=== PATIENT | male | born 1990 | race Hispanic/Latino ===

== ENCOUNTER → 2017-08-29 | Day surgery (SDC) | payer BC ==
[~2017-08-29] MED LIST: Lactated Ringer's 1,000 ML IV SCH; Morphine 4 mg/ml ISec IVP PRN; cefTRIAXone 1 gm 1 GM/100 ML BAG IVPB SCH; metroNIDAZOLE IV 500 mg/100 ml 500 MG/100 ML BAG IVPB SCH
[2017-08-29 17:07] VITALS: BMI 28.0
[2017-08-29 17:08] VITALS: BP 152/90; PULSE 68; RESP 16; TEMP 98.6; O2SAT 99
--- NOTE | 2017-08-29 17:10 | ED PDOC ---
Arrival/HPI - General Chief Complaint: Abdominal Pain Time Seen by Provider: 08/29/17 16:56 Historian: Patient - History of Present Illness Time/Duration: Other (This morning) Symptom Course: Unchanged Quality: Aching Severity Level: Mild Associated Symptoms (Text): 08/29/17 17:07 Patient woke up this morning at approximately 11 AM with right lower quadrant abdominal pain. No nausea vomiting or diarrhea. No genitourinary symptoms. No back pain. No radiation of pain. No fever or chills. He does not appear ill. He was seen at an urgent care clinic and directed to the emergency department to rule out appendicitis. Family/Social History - Physician Review Nursing Documentation Reviewed: Yes Family/Social History: Unknown Family HX Smoking Status: Never Smoked Hx Alcohol Use: Yes Frequency of alcohol use: Socially Hx Substance Use: No Allergies/Home Meds Allergies/Adverse Reactions: Allergies No Known Allergies Allergy (Unverified 08/29/17 17:06) Home Medications: Home Meds Medication Instructions Recorded Confirmed No Known Home Med 08/29/17 08/29/17 Review of Systems - Physician Review All systems were reviewed & negative as marked: Yes - Review of Systems Constitutional: Normal Respiratory: Normal Cardiovascular: Normal Gastrointestinal: Abdominal Pain. absent: Constipation, Diarrhea, Nausea, Vomiting Genitourinary Male: absent: Dysuria, Frequency, Hematuria Physical Exam Vital Signs Temp Pulse Resp BP Pulse Ox 08/29/17 17:04 98.6 F 68 16 152/90 H 99 Temperature: Afebrile Blood Pressure: Hypertensive Pulse: Regular Respiratory Rate: Normal Appearance: Positive for: Well-Appearing, Non-Toxic, Comfortable, Uncomfortable Pain Distress: Mild Mental Status: Positive for: Alert and Oriented X 3 - Systems Exam Head: Present: Atraumatic, Normocephalic Pupils: Present: PERRL Extroacular Muscles: Present: EOMI Conjunctiva: Present: Normal Mouth: Present: Moist Mucous Membranes Neck: Present: Normal Range of Motion Respiratory/Chest: Present: Clear to Auscultation, Good Air Exchange. No: Respiratory Distress, Accessory Muscle Use Cardiovascular: Present: Regular Rate and Rhythm, Normal S1, S2. No: Murmurs Abdomen: Present: Tenderness (Mild right lower quadrant tenderness. No guarding or rebound.), Normal Bowel Sounds. No: Distention, Peritoneal Signs, Rebound, Guarding Back: Present: Normal Inspection. No: CVA Tenderness, Midline Tenderness, Paraspinal Tenderness Upper Extremity: Present: Normal Inspection. No: Cyanosis, Edema Lower Extremity: Present: Normal Inspection. No: Edema Neurological: Present: GCS=15, CN II-XII Intact, Speech Normal, Motor Func Grossly Intact Skin: Present: Warm, Dry, Normal Color. No: Rashes Psychiatric: Present: Alert, Oriented x 3, Normal Insight, Normal Concentration Medical Decision Making ED Course and Treatment: 08/29/17 17:09 Patient does not want pain medication at this time. CT Abdomen and Pelvis Without Intravenous Contrast IMPRESSION: 1. The appendix is mildly distended measuring 9 mm in diameter. There is subtle periappendiceal stranding, and early appendicitis is considered. Clinical correlation is recommended. 2. Borderline splenomegaly. 3. Several mildly distended small bowel loops are seen within the anterior abdomen. Air-fluid levels are visualized within these bowel loops. Partial obstruction cannot be excluded. 4. Several mesenteric lymph nodes are visualized within the right lower quadrant , the largest measuring 1.1 x 0.7 cm. These lymph nodes are suggestive of mild mesenteric adenitis. 5. Incidental/non-acute findings are described above. Dictated and Authenticated by: Shabbir Moreland MD 08/29/2017 7:08 PM Eastern Time ([place] & [place]) 08/29/17 19:36 Discussed with the surgical instruments inspector and Dr. Berman, who will admit for operative intervention.. 08/29/17 20:34 Discussed with the patient at length about the need for admission for IV antibiotics and surgery. Awake alert and oriented and will be signing out AMA. He is here with his girlfriend. She concurs with his decision. He was told that he can follow up at any time for further evaluation and treatment - Lab Interpretations Lab Results: 08/29/17 17:20 08/29/17 17:20 Lab Results 08/29/17 17:20: Sodium 140, Potassium 3.6, Chloride 102, Carbon Dioxide 29, Anion Gap 13, BUN 16, Creatinine 1.1, Est GFR ( Amer) > 60, Est GFR (Non- Af Amer) > 60, Random Glucose 92, Calcium 9.5, Total Bilirubin 0.9, AST 36, ALT 54, Alkaline Phosphatase 60, Total Protein 7.6, Albumin 4.4, Globulin 3.2, Albumin/Globulin Ratio 1.4, Lipase 86 08/29/17 17:20: WBC 10.4, RBC 4.63, Hgb 14.7, Hct 40.8 L, MCV 88.1, MCH 31.7, MCHC 36.0, RDW 11.9, Plt Count 270, MPV 9.3, Gran % 66.9, Lymph % (Auto) 22.3, [place] % (Auto) 8.7 H, Eos % (Auto) 1.9, Baso % (Auto) 0.2, Gran # 6.97 H, Lymph # (Auto) 2.3, [place] # (Auto) 0.9 H, Eos # (Auto) 0.2, Baso # (Auto) 0.02 - RAD Interpretation Radiology Orders: 08/29/17 17:06 ABD & PELVIS W/O PO OR IV CONT [CT] Stat CT scan of the abdomen and pelvis as read by the V radradiologist is positive for early acute appendicitis. Scorekeeper: Radiologist - Medication Orders Current Medication Orders: Acetaminophen (Tylenol 325mg Tab) 650 mg PO Q4H PRN PRN Reason: Fever >100.4 F Docusate Sodium (Colace) 100 mg PO BID LORIE Lactated Ringer's (Lactated Ringer's) 1,000 mls @ 125 mls/hr IV .Q8H LORIE Metronidazole (Flagyl) 500 mg in 100 mls @ 100 mls/hr IVPB Q8 LORIE PRN Reason: Protocol Ceftriaxone Sodium (Rocephin 1 Gram Ivpb) 1 gm in 100 mls @ 100 mls/hr IVPB Q24H LORIE PRN Reason: Protocol Morphine Sulfate (Morphine) 4 mg IVP Q4H PRN PRN Reason: Pain, moderate (4-7) Ondansetron HCl (Zofran Inj) 4 mg IVP Q4H PRN PRN Reason: Nausea/Vomiting Discontinued Medications Ceftriaxone Sodium (Rocephin 1 Gram Ivpb) 1 gm in 100 mls @ 100 mls/hr IVPB DAILY LORIE PRN Reason: Protocol Disposition/Present on Arrival - Present on Arrival Any Indicators Present on Arrival: No History of DVT/PE: No History of Uncontrolled Diabetes: No Urinary Catheter: No History of Decub. Ulcer: No - Disposition Have Diagnosis and Disposition been Completed?: Yes Diagnosis: Appendicitis Disposition: AGAINST MEDICAL ADVICE Disposition Time: 19:28 Patient Plan: Discharge, Observation Patient Problems: Current Active Problems Problem Status Onset Appendicitis Acute Condition: GOOD
[2017-08-29 17:42] LABS: BASO # 0.02 K/mm3 (0.0-2.0); BASO % 0.2 % (0.0-3.0); EOS # 0.2 (0.0-0.7); EOS % 1.9 % (1.5-5.0); GRAN # 6.97 (1.4-6.5); GRAN % 66.9 % (50.0-68.0); HEMOGLOBIN 14.7 g/dL (14.0-18.0); LYMPH # 2.3 (1.2-3.4); LYMPH % 22.3 % (22.0-35.0); MEAN CELL VOLUME 88.1 fl (80.0-105.0); MEAN CORPUSCULAR HEMOGLOBIN 31.7 pg (25.0-35.0); MEAN PLATELET VOLUME 9.3 fl (7.0-11.0); MONO # 0.9 (0.1-0.6); MONO % 8.7 % (1.0-6.0); RBC 4.63 10^6/uL (3.5-6.1); RED CELL DISTRIBUTION WIDTH 11.9 % (11.5-14.5); WHITE BLOOD COUNT 10.4 10^3/ul (4.5-11.0)
[2017-08-29 17:52] LABS: ALB/GLOB RATIO 1.4 (1.1-1.8); ALBUMIN 4.4 g/dL (3.0-4.8); ALT/SGPT 54 U/L (7-56); AST/SGOT 36 U/L (17-59); BLOOD UREA NITROGEN 16 mg/dL (7-21); CALCIUM 9.5 mg/dL (8.4-10.5); GFR AFRICAN-AMERICAN > 60; GFR NON-AFRICAN AMERICAN > 60; LIPASE 86 U/L (23-300)
--- NOTE | 2017-08-29 19:08 | CT ---
EXAM: CT Abdomen and Pelvis Without Intravenous Contrast EXAM DATE/TIME: 08/29/2017 5:06 PM CLINICAL HISTORY: The patient age is 26 years old and is male; Pain; Abdominal pain and other: R/oappendicitis; Additional info: Appendicitis Facility exam id and description: Ct abdpelscon abd pelvis w/o po or iv cont TECHNIQUE: Axial computed tomography images of the abdomen and pelvis without intravenous contrast. All CT scans at this facility use one or more dose reduction techniques, viz.: automated exposure control; ma/kV adjustment per patient size (including targeted exams where dose is matched to indication; i.e. head); or iterative reconstruction technique. Coronal and sagittal reformatted images were created and reviewed. COMPARISON: No relevant prior studies available. FINDINGS: Lung bases: Dependent atelectatic change is identified at the lung bases posteriorly. ABDOMEN: Liver: Unremarkable. No mass. Gallbladder and bile ducts: No calcified stones. No ductal dilation. Pancreas: Normal contour. No ductal dilation. Spleen: The spleen measured 12.7 cm in length, borderline for splenomegaly. Adrenals: No mass. Kidneys and ureters: There is a hypodense probable right renal cyst measuring 1.8 x 1.8 cm. There is a retroverted left renal vein. No obstructing stones. No hydronephrosis. Stomach and bowel: Several mildly distended small bowel loops are seen within the anterior abdomen, measuring up to 2.7 cm in diameter. Air-fluid levels are visualized within these bowel loops. Partial obstruction cannot be excluded. There is gaseous and fecal distention of the rectum. Evaluation of bowel is limited by the absence of oral contrast. Moderate fecal material is identified within the colon. Appendix: The appendix is mildly distended measuring 9 mm in diameter. There is subtle periappendiceal stranding, and early appendicitis is considered. PELVIS: Bladder: No stones. Reproductive: Unremarkable as visualized. ABDOMEN and PELVIS: Intraperitoneal space: No free air. Bones/joints: A small disc bulge is visualized at L4-5. Soft tissues: There is minimal herniation of fat into the umbilicus. Vasculature: See above. Lymph nodes: Several mesenteric lymph nodes are visualized within the right lower quadrant, the largest measuring 1.1 x 0.7 cm. These lymph nodes are suggestive of mild mesenteric adenitis. Scattered additional mesenteric lymph nodes are visualized. IMPRESSION: 1. The appendix is mildly distended measuring 9 mm in diameter. There is subtle periappendiceal stranding, and early appendicitis is considered. Clinical correlation is recommended. 2. Borderline splenomegaly. 3. Several mildly distended small bowel loops are seen within the anterior abdomen. Air-fluid levels are visualized within these bowel loops. Partial obstruction cannot be excluded. 4. Several mesenteric lymph nodes are visualized within the right lower quadrant, the largest measuring 1.1 x 0.7 cm. These lymph nodes are suggestive of mild mesenteric adenitis. 5. Incidental/non-acute findings are described above.
== END | disposition left against medical advice (07) ==
LOC: ED 16:50 → SDS 19:28
PROVIDERS: ATTEND Specialist
DX: K35.80 Unspecified acute appendicitis (principal); R16.1 Splenomegaly, not elsewhere classified; R40.2412 Glasgow coma scale score 13-15, at arrival to emergency department
CPT/HCPCS: 74176; 80053; 83690; 85025; J0696; J2270; J2405; J7120